=== PATIENT | female | born 1985 | race Caucasian/White ===

== ENCOUNTER 2023-01-18 09:06 | Outpatient (CLI) | payer BC, SELFPAY | END 2023-01-18 09:07 | disposition home or self-care (01) | LOC: NFLDREF 09:09 | PROVIDERS: Visit Provider Registered Nurse | DX: Z01.419 Encounter for gynecological examination (general) (routine) without abnormal findings (principal); E78.5 Hyperlipidemia, unspecified; F32.A Depression, unspecified; Z13.6 Encounter for screening for cardiovascular disorders | CPT/HCPCS: 80061 ==

== ENCOUNTER 2023-05-04 08:02 | Outpatient (CLI) | payer BC, SELFPAY ==
--- NOTE | 2023-05-04 08:15 | CRLHL7_ITS ---
For Patients: As a result of the Century Cures Act, medical imaging exams and procedure reports are released immediately into your electronic medical record. You may view this report before your referring provider. If you have questions, please contact your health care provider. BILATERAL SCREENING MAMMOGRAM WITH COMPUTER-AIDED DETECTION TECHNIQUE: CC and MLO views were obtained. These mammographic images have been obtained using full-field digital technique. These mammographic images were interpreted with the benefit of computer-aided detection. COMPARISON FILM: Baseline. FINDINGS: There are scattered areas of fibroglandular density IMPRESSION: There is no radiographic evidence for malignancy. ASSESSMENT: BI-RADS Category 2: Benign RECOMMENDATION: Routine screening mammogram in 1 year. A lay language report of this examination will be provided to the patient. Senthil Banks M.D. Diagnostic Radiologist [email or web address] Transcribed: 4:40 p.mFe padgett/Dictated by: Senthil Banks MD @ 05/04/2023 11:05:00 AM (Electronically Signed)
== END 2023-05-04 08:03 | disposition home or self-care (01) ==
LOC: MAMMO 08:03
PROVIDERS: Visit Provider Registered Nurse
DX: Z12.31 Encounter for screening mammogram for malignant neoplasm of breast (principal)
CPT/HCPCS: 77067

== ENCOUNTER 2024-10-25 09:35 | Outpatient (CLI) | payer OTHER, SELFPAY ==
--- NOTE | 2024-10-25 09:45 | CRLHL7_ITS ---
For Patients: As a result of the Century Cures Act, medical imaging exams and procedure reports are released immediately into your electronic medical record. You may view this report before your referring provider. If you have questions, please contact your health care provider. BILATERAL DIGITAL SCREENING MAMMOGRAM WITH COMPUTER-AIDED DETECTION AND TOMOSYNTHESIS, 10/25/2024 CLINICAL HISTORY: Routine screening exam. COMPARISON: 05/04/23. TECHNIQUE: Digital mammogram in CC and MLO projections including computer-aided detection (CAD). Tomosynthesis was used in this interpretation. BREAST COMPOSITION: There are scattered areas of fibroglandular density. FINDINGS: RIGHT Breast: Focal asymmetric density lateral RIGHT breast 4 cm from the nipple. LEFT Breast: No suspicious findings. IMPRESSION: RIGHT breast asymmetry/mass. RECOMMENDATIONS: Additional mammographic views of the RIGHT breast including 3D spot compression CC/MLO. RIGHT breast ultrasound may also be required. The [facility] will contact the patient. A lay language report of this examination will be provided to the patient. BI-RADS Category 0: Incomplete: Need Additional Imaging Evaluation Dictated by Senthil Banks MD @ 10/28/2024 10:44:26 AM CLAUDIA/melania DW/Dictated by: Senthil Banks MD @ 10/28/2024 10:44:00 AM (Electronically Signed)
== END 2024-10-25 09:36 | disposition home or self-care (01) ==
LOC: MAMMO 09:37
PROVIDERS: Visit Provider Registered Nurse
DX: Z12.31 Encounter for screening mammogram for malignant neoplasm of breast (principal); N63.10 Unspecified lump in the right breast, unspecified quadrant
CPT/HCPCS: 77063; 77067

== ENCOUNTER 2024-11-27 07:44 | Outpatient (CLI) | payer OTHER, SELFPAY ==
--- NOTE | 2024-11-27 07:45 | CRLHL7_ITS ---
For Patients: As a result of the Century Cures Act, medical imaging exams and procedure reports are released immediately into your electronic medical record. You may view this report before your referring provider. If you have questions, please contact your health care provider. DIGITAL DIAGNOSTIC RIGHT BREAST MAMMOGRAM USING TOMOSYNTHESIS AND COMPUTER-AIDED DETECTION RIGHT BREAST ULTRASOUND CLINICAL HISTORY: RIGHT breast mass/asymmetry. COMPARISON: 10/25/24, 05/04/23. TECHNIQUE: Digital RIGHT mammogram in two projections. Tomosynthesis and CAD were used in this interpretation. Real-time ultrasound imaging of RIGHT breast with imaging documentation. BREAST COMPOSITION: There are scattered areas of fibroglandular density. FINDINGS: 3D spot compression CC/MLO RIGHT breast mammogram images submitted. Persistent nodular density in the upper outer quadrant without architectural distortion. No suspicious calcifications. Targeted RIGHT breast ultrasound performed 10 o`clock 4 cm from the nipple. At mid depth, there is a lobular solid hypoechoic nodule measuring 3 x 2 x 7 millimeters. IMPRESSION: Indeterminate nodule RIGHT breast 10 o`clock 4 cm from the nipple measuring 7 millimeters. RECOMMENDATIONS: Ultrasound-guided core needle biopsy recommended. A lay language report of this examination will be provided to the patient. BI-RADS Category 4: Suspicious Dictated by Senthil Banks MD @ 11/27/2024 9:28:20 AM jj/Dictated by: Senthil Banks MD @ 11/27/2024 9:28:00 AM (Electronically Signed)
== END 2024-11-27 07:45 | disposition home or self-care (01) ==
LOC: MAMMO 07:44
PROVIDERS: Visit Provider Registered Nurse
DX: N63.10 Unspecified lump in the right breast, unspecified quadrant (principal)
CPT/HCPCS: 76642; 77065; G0279

== ENCOUNTER 2024-12-05 10:03 | Outpatient (CLI) | payer OTHER, SELFPAY ==
--- NOTE | 2024-12-05 10:15 | CRLHL7_ITS ---
For Patients: As a result of the Century Cures Act, medical imaging exams and procedure reports are released immediately into your electronic medical record. You may view this report before your referring provider. If you have questions, please contact your health care provider. ULTRASOUND-GUIDED BREAST BIOPSY AND POST-BIOPSY DIGITAL MAMMOGRAM FOR BIOPSY MARKER PLACEMENT, 12/05/2024 CLINICAL HISTORY: Indeterminate nodule. COMPARISON STUDIES: 11/27/2024. TECHNIQUE: Real-time ultrasound with image documentation was used for targeting the breast lesion. Core biopsy specimens were obtained using an automated gun with a 16-gauge biopsy needle. Post-biopsy CC and ML digital mammograms were obtained to document position of the biopsy marker. CONSENT and TIME OUT: The procedure, risks, and alternatives were explained to the patient and a consent was signed. [place] Protocol was followed including pre-procedure verification that relevant information/documentation was available, reviewed and properly matched to the patient; consent accurate and complete; and equipment and supplies available. Time Out was conducted just prior to starting procedure to verify the four required elements: patient identity, correct side/site marked (if applicable), procedure, relevant images/results properly labeled and displayed (if applicable). PROCEDURE: The patient was positioned supine on the ultrasound table. The breast was prepped with ChloraPrep. 8 cc of 1 percent lidocaine used for local anesthesia. Core samples were obtained. A sterile metal biopsy clip was placed percutaneously to john the lesion position within the breast. The specimens were placed in 10% formalin and sent to the pathology department. Pressure was held on the biopsy site until all bleeding subsided. The skin incision was closed with Steri-Strips. An ice pack was positioned over the biopsy site. Post-biopsy instructions were reviewed with the patient, and a written copy was given to her. LATERALITY: RIGHT breast. LESION: Lobular solid hypoechoic nodule measuring 3 x 2 x 7 millimeters at 10 o`clock 4 cm from the nipple. SUSPICION FOR MALIGNANCY: Intermediate. NUMBER OF SAMPLES: 5. BIOPSY CLIP SHAPE: Oval. PROXIMITY OF CLIP TO TARGET: Within the lesion. IMPRESSION: Ultrasound-guided breast biopsy. When the pathology report is available, an addendum to this report will be made. ACR not applicable Dictated by Senthil Banks MD @ 12/05/2024 11:58:15 AM CLAUDIA/melania DW/Dictated by: Senthil Banks MD @ 12/05/2024 11:58:00 AM (Electronically Signed)
--- NOTE | 2024-12-05 11:00 | CRLHL7_ITS ---
For Patients: As a result of the Century Cures Act, medical imaging exams and procedure reports are released immediately into your electronic medical record. You may view this report before your referring provider. If you have questions, please contact your health care provider. Please see RIGHT breast ultrasound-guided biopsy of same date. DM:melania 12/05/2024 DW/Dictated by: Senthil Banks MD @ 12/05/2024 11:56:00 AM (Electronically Signed)
== END 2024-12-05 10:04 | disposition home or self-care (01) ==
LOC: US 10:04
PROVIDERS: Visit Provider Registered Nurse
DX: N63.10 Unspecified lump in the right breast, unspecified quadrant (principal); D24.1 Benign neoplasm of right breast
CPT/HCPCS: 19083; 77065; 88305; A4648; A4649

== ENCOUNTER 2025-01-30 10:23 | Outpatient (CLI) | payer OTHER, SELFPAY | END 2025-01-30 10:24 | disposition home or self-care (01) | PROVIDERS: Visit Provider Family Medicine | DX: D24.2 Benign neoplasm of left breast (principal) | CPT/HCPCS: 80048; 85025 ==

== ENCOUNTER 2025-02-06 07:03 | Day surgery (SDC) | payer OTHER, SELFPAY ==
[2025-02-06] MEDS: LACTATED RINGERS 1000 ML 1,000 ML 100 ML IV (07:10)
[2025-02-06 07:26] LABS: Ur HCG Qualitative* Negative (Negative)
[2025-02-06 07:28] VITALS: BP 124/85; PULSE 85; RESP 16; TEMP 36.6; O2SAT 97; BMI 32.4
[2025-02-06] MEDS: SODIUM CHLORIDE 0.9 % (FLUSH) 10 ML SYRINGE IVF (07:31)
--- NOTE | 2025-02-06 08:15 | CRLHL7_ITS ---
For Patients: As a result of the Century Cures Act, medical imaging exams and procedure reports are released immediately into your electronic medical record. You may view this report before your referring provider. If you have questions, please contact your health care provider. BREAST WIRE LOCALIZATION USING ULTRASOUND GUIDANCE CLINICAL HISTORY: Intraductal papilloma. LATERALITY: RIGHT breast. LESION: 3 x 2 x 7 millimeter hypoechoic nodule upper-outer quadrant 10 o`clock 4 cm from the nipple. LOCALIZATION WIRE: [place] hookwire. TECHNIQUE: The localization wire was placed using real-time ultrasound guidance with image documentation. Cranial-caudal and medial-lateral digital mammograms were obtained after localization wire placement. CONSENT and TIME OUT: The procedure, risks, and alternatives were explained to the patient and a consent was signed. [place] Protocol was followed including pre-procedure verification that relevant information/documentation was available, reviewed and properly matched to the patient; consent accurate and complete; and equipment and supplies available. Time Out was conducted just prior to starting procedure to verify the four required elements: patient identity, correct side/site marked (if applicable), procedure, relevant images/results properly labeled and displayed (if applicable). PROCEDURE: The skin was prepped with ChloraPrep and 8 cc of 1% lidocaine was injected for local anesthesia. The localization wire was placed within or near the targeted breast lesion using ultrasound guidance. The patient tolerated the procedure well. PROXIMITY OF WIRE TO LESION: Wire is present within the lesion adjacent to the clip. IMPRESSION: Successful breast wire localization. ACR not applicable Dictated by Senthil Banks MD @ 02/06/2025 1:27:08 PM jj/Dictated by: Senthil Banks MD @ 02/06/2025 1:27:00 PM (Electronically Signed)
--- NOTE | 2025-02-06 09:00 | CRLHL7_ITS ---
For Patients: As a result of the Cures Act, medical imaging exams and procedure reports are released immediately into your electronic medical record. You may view this report before your referring provider. If you have questions, please contact your health care provider. SEE ULTRASOUND-GUIDED RIGHT BREAST WIRE LOCALIZATION PERFORMED SAME DAY CRL:dayron padgett/Dictated by: Senthil Banks MD @ 02/06/2025 1:27:00 PM (Electronically Signed)
[2025-02-06] MEDS: CEFAZOLIN 1 GM inj IVP (09:15)
--- NOTE | 2025-02-06 09:18 | CRLHL7_ITS ---
For Patients: As a result of the Cures Act, medical imaging exams and procedure reports are released immediately into your electronic medical record. You may view this report before your referring provider. If you have questions, please contact your health care provider. RIGHT BREAST SPECIMEN RADIOGRAPH CLINICAL HISTORY: RIGHT breast papilloma. COMPARISON: 11/27/2024. FINDINGS: Two views RIGHT breast specimen submitted. Surgical clip is present along with the localization wire and biopsied lesion. IMPRESSION: Specimen contains the biopsy clip, biopsied lesion and localization wire. ACR not applicable Dictated by Senthil Banks MD @ 02/06/2025 1:24:54 PM jj/Dictated by: Senthil Banks MD @ 02/06/2025 1:24:00 PM (Electronically Signed)
[2025-02-06] MEDS: LIDOCAINE 1% MDV 5 ML INJECTION (09:34)
[2025-02-06] MEDS: BUPIVACAINE 0.25% 30 ML 5 ML INJECTION (09:34)
--- NOTE | 2025-02-06 09:47 | SUR.OPER ---
PATIENT QUESTIONS ANSWERED SATISFACTORILY PREOPERATIVELY. PATIENT BROUGHT TO OR #3 PER CART. Patient positioned supine on OR #3 bed. The perioperative team supported arms bilaterally on arm boards. Final approval of positioning by surgeon.
[2025-02-06 10:20] VITALS: BP 119/81; PULSE 83; RESP 14; TEMP 36.7; O2SAT 97
--- NOTE | 2025-02-06 10:22 | P.ANES_ITS ---
Anesthesia Charges Start Date/Time Anesthesia Start Date: 02/06/25 Anesthesia Start Time: 09:09 Stop Date/Time Anesthesia Stop Date: 02/06/25 Anesthesia Stop Time: 10:23 Coding CPT Codes CPT Codes: ANESTH SKIN EXT/PER/ATRUNK - 52495 ([id number]) P2 - PATIENT W/MILD SYST DISEASE, QK - FRAMING INSPECTOR 2-4 CNCRNT ANES PROC, QX - WARP PICKER SVC W/ MD MED DIRECTION
--- NOTE | 2025-02-06 10:22 | W.ANESCHARGE ---
Anesthesia Charges Start Date/Time Anesthesia Start Date: 02/06/25 Anesthesia Start Time: 09:09 Stop Date/Time Anesthesia Stop Date: 02/06/25 Anesthesia Stop Time: 10:23 Coding CPT Codes CPT Codes: ANESTH SKIN EXT/PER/ATRUNK - 27538 ([id number]) P2 - PATIENT W/MILD SYST DISEASE, QK - CAMP COORDINATOR 2-4 CNCRNT ANES PROC, QX - INSTRUCTIONAL DESIGN MANAGER SVC W/ MD MED DIRECTION
[2025-02-06 10:30] VITALS: BP 126/73; PULSE 74; RESP 14; O2SAT 99
--- NOTE | 2025-02-06 10:38 | P.ANES_ITS ---
Anesthesia Charges Start Date/Time Anesthesia Start Date: 02/06/25 Anesthesia Start Time: 09:09 Stop Date/Time Anesthesia Stop Date: 02/06/25 Anesthesia Stop Time: 10:23 Coding CPT Codes CPT Codes: ANESTH SKIN EXT/PER/ATRUNK - 26898 ([id number]) QK - IMPROVEMENT ADVISOR 2-4 CNCRNT ANES PROC, QX - SENIOR CORPORATE STRATEGY MANAGER SVC W/ MD MED DIRECTION, P2 - PATIENT W/MILD SYST DISEASE
--- NOTE | 2025-02-06 10:38 | W.ANESCHARGE ---
Anesthesia Charges Start Date/Time Anesthesia Start Date: 02/06/25 Anesthesia Start Time: 09:09 Stop Date/Time Anesthesia Stop Date: 02/06/25 Anesthesia Stop Time: 10:23 Coding CPT Codes CPT Codes: ANESTH SKIN EXT/PER/ATRUNK - 27486 ([id number]) QK - BEVELER 2-4 CNCRNT ANES PROC, QX - FIRE FIGHTER AIRPORT SVC W/ MD MED DIRECTION, P2 - PATIENT W/MILD SYST DISEASE
[2025-02-06 10:45] VITALS: BP 133/88; PULSE 68; RESP 16; O2SAT 99
--- NOTE | 2025-02-06 12:47 | W.PM.H&PU ---
History & Physical Update History & Physical Update H&P Reviewed and patient assessed: No changes noted
--- NOTE | 2025-02-06 12:47 | PM.GSPRC ---
Operative Note Date of procedure: 02/06/25 Pre-op diagnosis: Intraductal papilloma, right breast Post-op diagnosis: Same Type of Procedure: Right breast lumpectomy Indications: Patient is a 39-year-old female with abnormality seen on screening mammogram. Biopsy revealed an intraductal papilloma. Different treatment options were discussed with the patient including continued observation versus surgical excision. Risks and benefits were discussed at length with the patient deciding to proceed with surgical excision. Please see consultation note for full discussion. Procedure Description: Prior to arrival in the operating room, the patient was taken to radiology where a wire was placed to localize the previously placed clip. After discussing the risks and benefits of the procedure, the patient signed informed consent.? The operative site was marked and the patient was brought to the operating room and placed on the operating table in supine position.? Care was taken to pad the patient's pressure points.?? The patient was then given sedation by anesthesia.?? The operative site was then prepped and draped in the usual sterile fashion.? A time-out was then performed. Local anesthesia was infiltrated into a curvilinear incision in the 8 o'clock position at the location of the tip of the wire. Using electrocautery, the segment of breast tissue containing the tip of the wire was excised. This was painted for orientation on the back table and then sent to Radiology for evaluation. Radiology called back and confirmed that the clip and wire were present within the specimen. Hemostasis was assured with pressure and electrocautery. Additional local anesthesia was infiltrated. The incision was then closed in layers using absorbable suture, and Dermbond placed over. The patient was awakened without incident and taken to PACU in stable condition. Sponge, needle and instrument counts were correct x3 at the termination of the case. Findings: Wire localized right breast mass. Anesthesia: MAC and local Surgeon: Savanah Morse MD Estimated blood loss (mL): 5 Additional Specimen Information: 1. Right breast mass Condition: stable Disposition: PACU
== END 2025-02-06 11:11 | disposition home or self-care (01) ==
PROVIDERS: Anesthesiology; Visit Provider Surgery
PROC: (CPT 19125; principal; 2025-02-06 09:15)
DX: D24.1 Benign neoplasm of right breast (principal)
CPT/HCPCS: 19125; 00400; 19285; 76942; 76998; 77065; 81025; 88307; J2003; C1769; J0665; J0690; J1100; J1885; J2405; J2704; J3010; J3490; J7120

== ENCOUNTER 2025-05-01 09:05 | Outpatient (CLI) | payer OTHER, SELFPAY | END 2025-05-01 09:06 | disposition home or self-care (01) | LOC: NFLDREF 05-05 16:09 | PROVIDERS: Visit Provider Registered Nurse | DX: E78.5 Hyperlipidemia, unspecified (principal) | CPT/HCPCS: 80061 ==

== ENCOUNTER 2025-08-07 07:51 | Outpatient (CLI) | payer OTHER, SELFPAY ==
--- NOTE | 2025-08-07 10:04 | P.ANES_ITS ---
Anesthesia Charges Start Date/Time Anesthesia Start Date: 08/07/25 Anesthesia Start Time: 09:23 Stop Date/Time Anesthesia Stop Date: 08/07/25 Anesthesia Stop Time: 09:57 Coding CPT Codes CPT Codes: MARCELLES LWR INTST NDSC NOS - 68222 ([id number]) P2 - PATIENT W/MILD SYST DISEASE, QZ - CMA SVC W/O CONTINUOUS IMPROVEMENT LEAD BY
--- NOTE | 2025-08-07 10:04 | W.ANESCHARGE ---
Anesthesia Charges Start Date/Time Anesthesia Start Date: 08/07/25 Anesthesia Start Time: 09:23 Stop Date/Time Anesthesia Stop Date: 08/07/25 Anesthesia Stop Time: 09:57 Coding CPT Codes CPT Codes: MARCELLES LWR INTST NDSC NOS - 35800 ([id number]) P2 - PATIENT W/MILD SYST DISEASE, QZ - TACK PULLER SVC W/O DIRECTOR PRODUCT BY
== END 2025-08-07 07:52 | disposition home or self-care (01) ==
LOC: OP CLINIC 07:52
PROVIDERS: Visit Provider Surgery
DX: Z12.11 Encounter for screening for malignant neoplasm of colon (principal); D12.3 Benign neoplasm of transverse colon; Z83.719 Family history of colon polyps, unspecified
CPT/HCPCS: 00811; 00812; 45385; 88305; J2704